=== PATIENT | male | born 1995 | race Caucasian/White ===

== ENCOUNTER 2017-11-05 21:11 | Emergency (ER) | payer MEDICAID, OTHER ==
[2017-11-05] MEDS: SOD CHLORIDE 0.9% 1,000 ML IV (22:34)
[2017-11-05] MEDS: KETOROLAC 30 MG INJ IV (22:34)
[2017-11-05] MEDS: DIPHENHYDRAMINE 50 MG INJ IV (22:34)
[2017-11-05] MEDS: METOCLOPRAMIDE 10 MG INJ IV (22:34)
== END 2017-11-05 23:14 | disposition home or self-care (01) ==
LOC: FTE 23:14
DX: R51 Headache (principal)
CPT/HCPCS: 96374; 96375; 99284-25